=== PATIENT | male | born 1955 | race Caucasian/White ===

== ENCOUNTER → 2020-01-18 11:31 | Outpatient (CLI) | payer MEDICARE, MEDICAID ==
[2020-01-18 12:05] LABS: BASOPHILS 0.3 % (0-2); EOSINOPHILS 1.3 % (0-7); HEMATOCRIT 41.3 % (42.0-54.0); IMMATURE GRANULOCYTES 0.3 % (0-5); LYMPHOCYTES 14.8 % (15-50); MCH 29.7 pg (26.0-34.0); MCHC 33.9 g/dL (31.0-37.0); MCV 87.5 fL (80.0-100.0); MEAN PLATELET VOLUME 9.5 fL (7.4-10.4); MONOCYTES 6.3 % (2-11); PLATELET COUNT 102 10x3/uL (130-400); RBC 4.72 10x6/uL (4.20-6.10); RDW 12.9 % (11.5-14.5)
[2020-01-18 12:44] LABS: ALBUMIN 3.7 g/dL (3.4-5.0); ANION GAP 11.5 mmol/L (8-16); BILIRUBIN - TOTAL 0.56 mg/dL (0.2-1.3); CARBON DIOXIDE 26.2 mmol/L (21.0-32.0); CREATININE - SERUM 1.5 mg/dL (0.6-1.3); POTASSIUM - SERUM 3.7 mmol/L (3.5-5.1); PROTEIN - SERUM 6.5 g/dL (6.4-8.2); T4 THYROXIN - FREE 1.3 ng/dL (0.76-1.46); THYROID STIMULATING HORMONE 1.22 uIU/mL (0.36-3.74)
[2020-01-18 13:21] LABS: ERYTHROCYTE SEDIMENTATION RATE 3 mm/hr (0-20)
[2020-01-19 06:10] LABS: RAPID PLASMA REAGIN Non Reactive (Non Reactive)
[2020-01-19 10:12] LABS: ANA REFLEX - DBL STRANDED DNA 7 IU/mL (0-9); ANA REFLEX - DIRECT Negative (Negative)
[2020-01-19 15:12] LABS: SPE - A/G RATIO 1.7 (0.7-1.7); SPE - ALBUMIN 3.8 g/dL (2.9-4.4); SPE - ALPHA-1 GLOBULIN 0.2 g/dL (0.0-0.4); SPE - ALPHA-2 GLOBULIN 0.5 g/dL (0.4-1.0); SPE - BETA GLOBULIN 0.8 g/dL (0.7-1.3); SPE - GAMMA GLOBULIN 0.7 g/dL (0.4-1.8); SPE - M-SPIKE Not Observed g/dL (Not Observed)
== END | disposition home or self-care (01) ==
LOC: D.LAB 11:31
PROVIDERS: ATTEND Psychiatry & Neurology Neurology
DX: G80.9 Cerebral palsy, unspecified (principal)